=== PATIENT | male | born 1990 | race Hispanic/Latino ===

== ENCOUNTER 2021-01-27 12:44 | Emergency (ER) | payer SELFPAY ==
[2021-01-27] MEDS ORDERED: Ketorolac Tromethamine 30 MG/ML VIAL ONE (13:43)
[2021-01-27] MEDS ORDERED: Acetaminophen 500 MG TAB ONE (14:09)
== END 2021-01-27 15:28 | disposition home or self-care (01) ==
LOC: ERS 12:44
DX: U07.1 COVID-19 (principal); J12.82 Pneumonia due to coronavirus disease 2019
CPT/HCPCS: 71045; 96374; J1885

== ENCOUNTER 2021-03-14 19:47 | Emergency (ER) | payer SELFPAY ==
[~2021-03-14 19:47] MED LIST: Iopamidol-370 76% 500 ML 1 ML ONE
[2021-03-14] MEDS ORDERED: Ondansetron PF 4 MG/2 ML Vial ONE (21:57)
[2021-03-14] MEDS ORDERED: Morphine 4 MG/ML VIAL ONE (21:57)
[2021-03-14] MEDS ORDERED: Ketorolac Tromethamine 30 MG/ML VIAL ONE (23:10)
== END 2021-03-14 23:22 | disposition home or self-care (01) ==
LOC: ERS 19:47
DX: S50.02XA Contusion of left elbow, initial encounter (principal); S30.1XXA Contusion of abdominal wall, initial encounter; S20.212A Contusion of left front wall of thorax, initial encounter; W11.XXXA Fall on and from ladder, initial encounter
CPT/HCPCS: 71260; 74177; 96374; 96375; J1885; J2270; J2405; Q9967